=== PATIENT | male | born 1960 | race Caucasian/White ===

== ENCOUNTER → 2017-03-15 | Outpatient (REF) | LOC: LAB 09:13 | DX: Z00.00 Encounter for general adult medical examination without abnormal findings (principal); Z12.5 Encounter for screening for malignant neoplasm of prostate ==

== ENCOUNTER → 2019-07-03 | Outpatient (CLI) | payer BC | LOC: CARDLAB 10:06 → CARDREHAB 15:27 | DX: G47.10 Hypersomnia, unspecified (principal); G47.8 Other sleep disorders ==

== ENCOUNTER → 2020-07-08 | Outpatient (CLI) | payer BC | LOC: LAB 08:53 | DX: U07.1 COVID-19 (principal) ==